=== PATIENT | female | born 2000 | race Asian ===

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

== ENCOUNTER 2021-01-21 07:00 | Outpatient (CLI) | payer MEDICAID, OTHER | END 2021-01-21 23:59 | disposition home or self-care (01) | LOC: COV 07:00 | PROVIDERS: ATTEND Family Medicine | DX: R09.81 Nasal congestion (principal); Z20.822 Contact with and (suspected) exposure to COVID-19 ==

== ENCOUNTER 2021-08-28 01:26 | Emergency (ER) | payer MEDICAID ==
--- NOTE | 2021-08-28 05:02 | ED Physician Documentation ---
PD HPI OPHTHO - Stated complaint Stated Complaint: R EYE IRRITATIN - Chief complaint Chief Complaint: Heent - History obtained from History obtained from: Patient - History of Present Illness Timing - onset: Last night Timing - details: Gradual onset Pain level now: 1 Location: Right Quality / character: Itching Associated symptoms: No: Redness, Swelling, Tearing, Discharge, Matting, FB sensation, Photophobia, Double vision, Decreased vision, Loss of vision, Headache Contributing factors: No: Recent URI, FB, UV light (welding etc), Wears glasses, Wears contacts - Additional information Additional information: c/o pruritic irritation of lateral aspect right upper eyelid. this started last night (few hours [employer]) without provoking/inciting factors and has nearly resolved by the time of this evaluation. denies h/o similar symptoms (she had a stye in the last but does not feel symptoms are similar). she denies pain, denies FB sensation Review of Systems Eyes: denies: Loss of vision, Decreased vision, Photophobia, Discharge PD PAST MEDICAL HISTORY - Past Medical History Past Medical History: No - Present Medications Home Medications: Ambulatory Orders Medication Instructions Recorded Confirmed No Known Home Medications 08/28/21 08/28/21 - Allergies Allergies/Adverse Reactions: Allergies Allergy/AdvReac Type Severity Reaction Status Date / Time No Known Drug Allergies Allergy Verified 08/28/21 01:40 PD ED PE NORMAL - Vitals Vital signs reviewed: Yes - General General: Alert and oriented X 3, No acute distress, Well developed/nourished - HEENT HEENT: PERRL, EOMI PD ED PE EXPANDED - Eyes Eyes: Normal eyelids, No eyelid FB (everted), Nl conjunctiva/sclera, Normal corneas (Only right cornea checked: no fluorescein uptake) Results - Vitals Vitals: Oxygen O2 Source Room air PD MEDICAL DECISION MAKING - ED course Complexity details: considered differential, d/w patient ED course: c/o pruritis and irritation of right upper eyelid which has nearly resolved by the time of this evaluation. normal exam including eyelid, orbit, and fluorescein stain. no cause of her symptoms at this time. Departure - Departure Disposition: 01 Home, Self Care Clinical Impression: Pain in eye Condition: Good Instructions: ED Symptoms No Dx Discharge Date/Time: 08/28/21 05:32
[2021-08-28] MEDS ORDERED: PROPARACAINE 0.5% OPHTH DROPS 15 ML RIGHTEYE STA (05:15)
[2021-08-28 05:16] VITALS: BP 134/89
== END 2021-08-28 05:32 | disposition home or self-care (01) ==
LOC: ED 01:26
DX: L29.9 Pruritus, unspecified (principal); H57.11 Ocular pain, right eye
CPT/HCPCS: 99281; 99282; J3490